=== PATIENT | male | born 1995 | race Caucasian/White ===

== ENCOUNTER → 2020-01-13 | Outpatient (CLI) | payer BC | LOC: SJCVCIMAG 08:19 | DX: I35.1 Nonrheumatic aortic (valve) insufficiency (principal) ==

== ENCOUNTER → 2020-04-20 | Outpatient (CLI) | payer BC | LOC: SJCVCIMAG 04-12 09:16 | PROVIDERS: ATTEND Internal Medicine | DX: Z01.818 Encounter for other preprocedural examination (principal); I08.8 Other rheumatic multiple valve diseases ==

== ENCOUNTER → 2020-09-21 | Outpatient (CLI) | payer BC | LOC: SJCVCIMAG 09:13 | PROVIDERS: ATTEND Internal Medicine | DX: I35.1 Nonrheumatic aortic (valve) insufficiency (principal) ==

== ENCOUNTER → 2021-03-22 | Outpatient (CLI) | payer BC | LOC: SJCVCIMAG 07:43 | PROVIDERS: ATTEND Internal Medicine | DX: I35.1 Nonrheumatic aortic (valve) insufficiency (principal); I35.8 Other nonrheumatic aortic valve disorders; E78.5 Hyperlipidemia, unspecified ==